=== PATIENT | male | born 1970 | race African-American/Black ===

== ENCOUNTER 2024-06-06 01:44 | Emergency (ER) | payer SELFPAY ==
[~2024-06-06] VITALS: Ht 177.8 cm; Wt 91.0 kg
[2024-06-06 01:57] VITALS: O2SAT 97
[2024-06-06 02:17] VITALS: BP 138/90; PULSE 80; RESP 16; TEMP 36.61404; O2SAT 99
[2024-06-06] MEDS: ONDANSETRON HCL 4MG/2ML INJ IV STA (02:19)
[2024-06-06] MEDS: SODIUM CHLORIDE 0.9% 500 ML IV ONE (02:30)
== END 2024-06-06 03:37 | disposition left against medical advice (07) ==
LOC: ER 01:44
DX: R06.02 Shortness of breath (principal); R19.7 Diarrhea, unspecified; I10 Essential (primary) hypertension; R11.0 Nausea
CPT/HCPCS: 99283; 71045; 93005; J2405; J7030